=== PATIENT | female | born 1970 | race Caucasian/White ===

== ENCOUNTER → 2018-09-17 | Outpatient (CLI) | payer BC ==
--- NOTE | 2018-09-18 13:58 | RAD ---
EXAM DESCRIPTION: Shoulder,Right 2 x-ray Views CLINICAL HISTORY: PAIN COMPARISON: None Available. TECHNIQUE: Two views of the right shoulder. FINDINGS: There is adequate internal and external rotation. There is no fracture or dislocation. Moderate degenerative changes at the right AC joint with enlargement of the peripheral clavicle and mild inferior osteophyte extension. Mild irregularity of the inferior clavicle at the junction of the middle and peripheral thirds may be old coracoclavicular ligament injury. No focal bone lesion. IMPRESSION: Negative for fracture or dislocation. Electronically signed by: Alan Small MD 09/18/2018 1:55 PM CDT
== END ==
LOC: RAD 17:28
PROVIDERS: ATTEND Nurse Practitioner Family
DX: M25.519 Pain in unspecified shoulder (principal)

== ENCOUNTER → 2018-11-04 | Outpatient (CLI) | payer BC ==
--- NOTE | 2018-11-05 08:35 | MRI ---
EXAM DESCRIPTION: MRI right shoulder CLINICAL HISTORY: Rotator cuff tear. Shoulder pain COMPARISON: None. TECHNIQUE: Multiplanar, multisequence MR images of the right shoulder FINDINGS: Full-thickness supraspinatus tendon tear. Articular surface involvement across the anteroposterior extent of the tendon. Delamination and retraction of bursal sided fibers about 9 mm over about a 7 mm anteroposterior segment. The medial lateral extent of interstitial component of tear about 1.4 cm. Osseous edema and a small cyst in the horizontal facet greater tuberosity. Muscle volume is mildly decreased with grade 1 fatty infiltration Infraspinatus tendinosis. Interstitial partial tear of the anterior tendon with mild linear fluid signal from the myotendinous junction to the insertion. Small cyst in the anterior oblique facet greater tuberosity. Muscle volume is normal with grade 1 fatty infiltration. Teres minor tendon and muscle are normal. Subscapularis tendon intact. Mild muscle volume loss and grade 1 fatty streaking Long head biceps tendon normal in the bicipital groove and intra-articular. Labral anchor intact. No labral tear No high-grade glenohumeral chondrosis or chronic osteochondral lesion Moderate acromioclavicular osteoarthritis. Prominent distal clavicle osteophyte indenting the supraspinatus. Small inferolateral acromial spur. Subacromial subdeltoid bursal fluid with mild synovitis IMPRESSION: Full-thickness supraspinatus tendon tear. Partial bursal sided retraction Electronically signed by: Sarwat Vazquez MD 11/05/2018 8:32 AM CDT
== END ==
LOC: MRI 13:56
PROVIDERS: ATTEND Orthopaedic Surgery
DX: M75.101 Unspecified rotator cuff tear or rupture of right shoulder, not specified as traumatic (principal)

== ENCOUNTER → 2018-12-16 | Outpatient (CLI) | payer BC | LOC: RESP 08:35 | PROVIDERS: ATTEND Orthopaedic Surgery | DX: Z01.818 Encounter for other preprocedural examination (principal) ==

== ENCOUNTER → 2019-03-18 | Outpatient (CLI) | payer BC ==
--- NOTE | 2019-03-19 08:44 | RAD ---
EXAM DESCRIPTION: Lumbar Spine 3 Views CLINICAL HISTORY: RADICULOPATHY COMPARISON: None Available. TECHNIQUE: AP/lateral/coned-down lateral views lumbar spine. FINDINGS: Conventional five nonrib-bearing lumbar segments. Trace anterolisthesis of L4 on L5. The lumbar spine alignment is otherwise intact. The vertebral body heights are relatively maintained. No displaced fracture or significantly appearing subluxation is seen. The intervertebral discs spaces are relatively maintained. There is lower lumbar spine facet degeneration. IMPRESSION: 1. No radiographic evidence of displaced lumbar spine fracture or significantly appearing subluxation. 2. Mild degenerative changes with trace anterolisthesis of L4 on L5. Electronically signed by: Wilfredo Louis DO 03/19/2019 8:43 AM CDT
== END ==
LOC: RAD 11:20
PROVIDERS: ATTEND Physician Assistant
DX: M47.26 Other spondylosis with radiculopathy, lumbar region (principal); M43.16 Spondylolisthesis, lumbar region

== ENCOUNTER → 2019-03-30 | Outpatient (CLI) | payer BC ==
--- NOTE | 2019-03-31 13:49 | MRI ---
EXAM DESCRIPTION: Lumbar Spine w/o Contrast : Magnetic Resonance Imaging. CLINICAL HISTORY: SPONDYLOSIS COMPARISON: Lumbar spine radiographs 03/18/2019. TECHNIQUE: Multiplanar, multiple standard sequences, non contrast MRI, lumbar spine. FINDINGS: L5-S1: The disc is well visualized on axial T2 series 501, image 3. Normal signal in the disc with minimal loss of disc space. No endplate changes. Posterior elements unremarkable. Canal and foramina are patent. L4-L5: Disc desiccation and minimal disc space loss. 2 mm grade 1 anterolisthesis. No posterior disc bulge. Bilateral hypertrophic facet arthrosis more on the left with asymmetric ligament hypertrophy also more on the left. Hyperintense T2-weighted annular fissure in the base of the right foramen. Mild canal narrowing. Bilateral mild foraminal narrowing. Minimal deformity bilateral L4 pars interarticulares. L3-L4: Normal signal in the disc with disc space preserved. No bulging. Minimal thickening of the posterior ligaments. Canal and bilateral foramina are patent. Circumscribed hyperintense T1 and T2 lesion in the superior left vertebral body consistent with a hemangioma. L2-L3: Normal signal in the disc with disc space preserved. Posterior elements unremarkable. Canal and foramina are patent. L1-L2: Minimal disc desiccation with disc space maintained. Posterior elements unremarkable. Canal and foramina are patent. Circumscribed lesions in the L1 vertebral body with hyperintense T1 and T2 signal consistent with hemangiomas. Conus terminates just below the disc space. T12-L1: Normal signal in the disc and disc space maintained. Posterior elements unremarkable. Canal and foramina are patent. No scoliosis. Paravertebral soft tissues unremarkable.. Distal cord normal signal and caliber. Normal marrow signal in the remaining vertebral bodies and the posterior elements. Vertebral bodies are not compressed at any level. IMPRESSION: 1. Minimal disc abnormalities with disc spaces maintained at most levels. No significant canal or foraminal narrowing. Minimal hypertrophic changes in the posterior elements. 2. 2 mm grade 1 anterolisthesis at L4-L5. Possible deformities bilateral L4 pars interarticularis may represent spondylolysis. Annular fissure in the right posterior disc margin abutting the base of the right foramen. Mild canal narrowing. Electronically signed by: Capo Downey MD 03/31/2019 1:48 PM CDT
== END ==
LOC: MRI 09:00
PROVIDERS: ATTEND Nurse Practitioner Family
DX: M47.9 Spondylosis, unspecified (principal); M43.16 Spondylolisthesis, lumbar region; M51.86 Other intervertebral disc disorders, lumbar region

== ENCOUNTER → 2019-04-13 | Outpatient (CLI) | payer BC ==
--- NOTE | 2019-04-13 15:52 | US ---
EXAM DESCRIPTION: Abdomen,Complete CLINICAL HISTORY: RLQ pain COMPARISON: None Available. TECHNIQUE: Complete abdominal ultrasound FINDINGS: Visualized portions of the pancreas are unremarkable. No peripancreatic fluid. Bowel gas obscures some areas. Normal caliber of the aorta. Normal appearance of the inferior vena cava. Liver parenchyma is homogeneous in texture with increased echogenicity consistent with hepatic steatosis with spared areas of lesser echogenicity.. No liver mass or intrahepatic bile duct dilatation. No liver surface irregularity. Normal appearance of hepatic veins and portal vein. Gallbladder appears normal with no intraluminal stones. No gallbladder wall thickening. Common bile duct is normal in caliber measuring 4.0 mm. The right kidney measures 11.1 cm in length. Normal renal cortical echogenicity. The renal cortical thickness appears normal. No right renal mass, shadowing stone or cyst. There is no hydronephrosis. Spleen is normal in size. No focal splenic lesion. The left kidney measures 11 cm in length. Normal renal cortical echogenicity. The renal cortical thickness appears normal. No left renal mass, shadowing stone or cyst. There is no hydronephrosis. IMPRESSION: Hyperechoic liver consistent with diffuse hepatic steatosis with areas of parenchymal sparing. Electronically signed by: Alan Small MD 04/13/2019 3:51 PM CDT
== END ==
LOC: US 14:57
PROVIDERS: ATTEND Nurse Practitioner Family
DX: R10.31 Right lower quadrant pain (principal); K76.9 Liver disease, unspecified

== ENCOUNTER → 2019-04-15 | Outpatient (CLI) | payer BC ==
--- NOTE | 2019-04-16 10:19 | RAD ---
EXAM DESCRIPTION: Hip,Right 2 Views (accession [id number]), Pelvis (accession [id number]) CLINICAL HISTORY: 48 years Female, PAIN IN HIP COMPARISON: None. Findings: Location: Right hip/pelvis No acute fracture or dislocation. Mild left hip osteoarthritis. Mild right hip osteoarthritis. Soft tissues are unremarkable. Minimal sacroiliac joint space narrowing. IMPRESSION: Mild degenerative changes in the pelvis. No acute fracture or dislocation identified. Electronically signed by: Martín Burrell MD 04/16/2019 10:17 AM CDT
--- NOTE | 2019-04-16 10:19 | RAD ---
EXAM DESCRIPTION: Hip,Right 2 Views (accession [id number]), Pelvis (accession [id number]) CLINICAL HISTORY: 48 years Female, PAIN IN HIP COMPARISON: None. Findings: Location: Right hip/pelvis No acute fracture or dislocation. Mild left hip osteoarthritis. Mild right hip osteoarthritis. Soft tissues are unremarkable. Minimal sacroiliac joint space narrowing. IMPRESSION: Mild degenerative changes in the pelvis. No acute fracture or dislocation identified. Electronically signed by: Martín Burrell MD 04/16/2019 10:17 AM CDT
== END ==
LOC: RAD 15:51
PROVIDERS: ATTEND Orthopaedic Surgery
DX: M16.0 Bilateral primary osteoarthritis of hip (principal)

== ENCOUNTER → 2019-05-06 | Outpatient (CLI) | payer BC ==
--- NOTE | 2019-05-06 16:03 | CT ---
EXAM DESCRIPTION: Pelvis w/Contrast CLINICAL HISTORY: 48 years Female, PELVIC AND PERINEAL PAIN COMPARISON: None. TECHNIQUE: Contiguous 2.5 mm axial images were obtained from above the anterior superior iliac spine to below the proximal femora level without the use of intravenous contrast. Reformatted coronal and sagittal images were also obtained and reviewed. This exam was performed according to our departmental dose-optimization program, which includes automated exposure control, adjustment of the mA and/or kV according to patient size and/or use of iterative reconstruction technique. FINDINGS: The visualized small and large bowel loops appear grossly unremarkable with no abnormal dilatation or wall thickening. The appendix appears grossly unremarkable. Visualized upper abdomen demonstrates no free intraperitoneal air or fluid. The urinary bladder is well-distended and appears grossly unremarkable. The uterus is surgically absent. The ovaries are not visualized. No free fluid in the pelvis. The lower anterior abdominal wall demonstrates subcutaneous fat stranding could be sequela of recent subcutaneous injections. 8 mm anterior abdominal wall defect is noted at the umbilicus level with focal fat herniation. No evidence of bowel herniation. Review of the bone windows demonstrate no acute osseous abnormality. IMPRESSION: 1. No acute process identified in the pelvis. Electronically signed by: Marbin Diego MD 05/06/2019 4:01 PM CDT
== END ==
LOC: CT 13:24
PROVIDERS: ATTEND Surgery
DX: R10.2 Pelvic and perineal pain (principal)

== ENCOUNTER → 2019-06-22 | Outpatient (CLI) | payer BC ==
--- NOTE | 2019-06-22 11:22 | RAD ---
EXAM DESCRIPTION: Hand,Left 3 Views CLINICAL HISTORY: PAIN IN LEFT FINGERS COMPARISON: None Available. TECHNIQUE: AP, LATERAL, AND OBLIQUE radiographs of the left hand. FINDINGS: The visualized bones appear well mineralized. No acute fracture or dislocation. No evidence of bony erosions. The soft tissues appear grossly unremarkable. IMPRESSION: 1. Grossly unremarkable radiographs of the left hand. Electronically signed by: Marbin Diego MD 06/22/2019 11:20 AM [facility]
== END ==
LOC: RAD 10:09
PROVIDERS: ATTEND Orthopaedic Surgery
DX: M79.645 Pain in left finger(s) (principal)

== ENCOUNTER 2019-06-25 06:15 | Day surgery (SDC) | payer BC ==
[~2019-06-25 06:15] MED LIST: LACTATED RINGERS 1,000 ML ONE; SODIUM CHL 0.9% 100ML MINI-BAG 100 ML IVPB ONE; ceFAZolin SODIUM 1 GM VIAL ONE
[2019-06-25] MEDS ORDERED: LIDOCAINE 1% 50 ML VIAL INJ ONE ×2 (06:22→07:00)
[2019-06-25] MEDS ORDERED: BUPIVACAINE 0.25% INJ 30 ML VIAL INJ ONE ×2 (06:22→07:00)
[2019-06-25] MEDS ORDERED: ceFAZolin SODIUM 1 GM VIAL ONE (06:22)
[2019-06-25] MEDS ORDERED: VANCOMYCIN HCL INJ 1,000 MG VIAL IVPB ONE ×2 (06:22→07:00)
[2019-06-25] MEDS ORDERED: LACTATED RINGERS 1,000 ML IVS ONE (06:45)
[2019-06-25] MEDS ORDERED: fentaNYL CITRATE INJ 50 MCG/ML AMP ONE (06:46)
[2019-06-25] MEDS ORDERED: MIDAZOLAM INJ 2 MG/2 ML VIAL ONE (06:46)
[2019-06-25] MEDS ORDERED: PROPOFOL 200 MG/20 ML VIAL IV ONE (07:00)
[2019-06-25] MEDS ORDERED: LIDOCAINE 1% 10 ML VIAL INJ ONE (07:00)
[2019-06-25] MEDS ORDERED: ceFAZolin SODIUM 1 GM VIAL IRRIG ONE (07:00)
[2019-06-25 08:32] VITALS: BP 135/91; TEMP 96.8; O2SAT 96
--- NOTE | 2019-06-25 09:02 | OP ---
DATE OF PROCEDURE: 06/25/19 PREOPERATIVE DIAGNOSIS: 1. Left third trigger finger. POSTOPERATIVE DIAGNOSIS: 1. Left third trigger finger. PROCEDURE: 1. Trigger finger release. SURGEON: Dk Quintana MD. SYRUP BLENDER: Capo Johnson CST, SA-C. ANESTHESIA: Local with sedation. COMPLICATIONS: None. FINDINGS: Triggering at the A1 genesis of the left third digit. INDICATION: Albino has a history of triggering at the A1 genesis which has been causing both locking and popping with pain. Because of her ongoing symptoms, she has requested operative intervention. After discussing the risks, benefits and alternatives to operative therapy, the patient has given informed consent for trigger finger release. PROCEDURE: The patient was brought to the Operating Room and placed in the supine position. Sedation was administered and local anesthetic was injected into the operative area. Following injection, the arm was sterilely prepped and draped. A transverse incision was made directly overlying the A1 genesis of the triggering digit and blunt dissection was carried down to the genesis while protecting the digital nerves. After identification of the genesis, the genesis was transected and a [place] elevator was passed both proximally and distally to ensure complete release. The finger was flexed and extended and there was no evidence of locking or clicking. The wound was thoroughly irrigated and closed with Nylon suture. A sterile dressing was placed and the patient was taken to the Day Surgery Unit. POSTOPERATIVE PLAN: The patient has been encouraged to do range of motion of the digits and will followup with us in approximately one week. She has been given explicit instructions on appropriate wound care and dressing maintenance. #[id number] MTDD
== END 2019-06-25 08:28 | disposition home or self-care (01) ==
LOC: AMB 06:15
PROVIDERS: ATTEND Orthopaedic Surgery
DX: M65.332 Trigger finger, left middle finger (principal); E78.2 Mixed hyperlipidemia; I10 Essential (primary) hypertension; E11.9 Type 2 diabetes mellitus without complications; F32.9 Major depressive disorder, single episode, unspecified; Z90.710 Acquired absence of both cervix and uterus; Z79.84 Long term (current) use of oral hypoglycemic drugs; Z79.899 Other long term (current) drug therapy
CPT/HCPCS: 01810; 26055; 36416; 80307; 82948; 87070; 87077; 87186; J0690; J2250; J3010; J3370; J3490; J7050; J7120